=== PATIENT | female | born 1960 | race African-American/Black ===

== ENCOUNTER 2022-05-07 18:25 | Emergency (ER) | payer MEDICAID, OTHER ==
[~2022-05-07] VITALS: Ht 149.9 cm; Wt 52.0 kg
[2022-05-07] MEDS ORDERED: IBUPROFEN 600MG TABLET PO ONE (21:30)
[2022-05-07 21:37] VITALS: BP 186/86
== END 2022-05-07 23:23 | disposition home or self-care (01) ==
LOC: ER 20:11
DX: S63.501A Unspecified sprain of right wrist, initial encounter (principal); S83.91XA Sprain of unspecified site of right knee, initial encounter; W01.0XXA Fall on same level from slipping, tripping and stumbling without subsequent striking against object, initial encounter; Y93.89 Activity, other specified; Y92.89 Other specified places as the place of occurrence of the external cause; Y99.8 Other external cause status
CPT/HCPCS: 73110; 73562; 99284